=== PATIENT | female | born 1995 | race Caucasian/White ===

== ENCOUNTER 2018-10-15 10:15 | Emergency (ER) | payer OTHER ==
[~2018-10-15] VITALS: Ht 165.1 cm; Wt 65.8 kg
[~2018-10-15 10:15] MED LIST: CARAFATE 1 GM TA1 GM PO; DEPO-PROVER150 MG/M1 IM; IBUPROFEN 800800 M1 PO; IBUPROFEN 800800 MG PO; NORCO 5-325 TA1 EACH PO; PREVACID15 MG PO; PROAIR HFA8.5 GM; TESSALON PERLE100 MG PO; ZOFRAN 4 MG ORAL4 M1 DIS; ZOFRAN ODT4 MG PO; ZOLOFT 50 MG TA50 M1
[2018-10-15] MEDS ORDERED: EFFEXOR 5050 MG/1 T1 PO (10:27)
[2018-10-15] MEDS ORDERED: PRAZOSIN 1 MG CA1 M1 PO (10:28)
[2018-10-15] MEDS ORDERED: PROPRANOLOL 1010 MG PO (10:29)
[2018-10-15] MEDS ORDERED: AMOXICILLIN 50500 MG PO (11:48)
[2018-10-15] MEDS ORDERED: NAPROSYN500 MG PO (11:49)
[2018-10-15] MEDS ORDERED: LIDOCAINE VISC100 ML PO (11:49)
[2018-10-15 11:57] VITALS: BP 112/79
== END 2018-10-15 12:01 | disposition home or self-care (01) ==
LOC: M.ERS 10:15
DX: H66.91 Otitis media, unspecified, right ear (principal); J02.9 Acute pharyngitis, unspecified; J45.909 Unspecified asthma, uncomplicated; F32.9 Major depressive disorder, single episode, unspecified

== ENCOUNTER 2020-06-06 22:42 | Emergency (ER) | payer OTHER ==
[~2020-06-06] VITALS: Ht 165.1 cm; Wt 59.0 kg
[~2020-06-06 22:42] MED LIST changes: +AMOXICILLIN 50500 MG PO; +EFFEXOR 5050 MG/1 T1 PO; +LIDOCAINE VISC100 ML PO; +NAPROSYN500 MG PO; +PRAZOSIN 1 MG CA1 M1 PO; +PROPRANOLOL 1010 MG PO
[2020-06-07] MEDS ORDERED: KEFLEX500 M1 PO (00:18)
[2020-06-07 00:29] VITALS: BP 109/73
== END 2020-06-07 00:29 | disposition home or self-care (01) ==
LOC: M.ERS 22:42
DX: S62.630B Displaced fracture of distal phalanx of right index finger, initial encounter for open fracture (principal); J45.909 Unspecified asthma, uncomplicated; W23.0XXA Caught, crushed, jammed, or pinched between moving objects, initial encounter; Y93.89 Activity, other specified; Y92.89 Other specified places as the place of occurrence of the external cause; Y99.8 Other external cause status